=== PATIENT | female | born 1965 | race Caucasian/White ===

== ENCOUNTER → 2018-02-03 | Emergency (ER) | payer OTHER ==
[~2018-02-03] VITALS: Ht 162.6 cm; Wt 68.0 kg
== END | disposition home or self-care (01) ==
LOC: ER 14:23
DX: R55 Syncope and collapse (principal); N39.0 Urinary tract infection, site not specified

== ENCOUNTER 2019-07-16 17:49 | Emergency (ER) | payer OTHER ==
[~2019-07-16] VITALS: Ht 162.6 cm; Wt 64.4 kg
== END 2019-07-16 21:26 | disposition home or self-care (01) ==
LOC: ER 17:49
DX: J32.8 Other chronic sinusitis (principal); R51 Headache; M54.2 Cervicalgia; M54.5 Low back pain